=== PATIENT | male | born 1975 | race Caucasian/White ===

== ENCOUNTER 2019-04-09 03:06 | Emergency (ER) | payer OTHER, SELFPAY ==
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
== END 2019-04-09 03:54 | disposition home or self-care (01) ==
LOC: ERS 03:06
DX: S00.83XA Contusion of other part of head, initial encounter (principal); M25.512 Pain in left shoulder; F17.210 Nicotine dependence, cigarettes, uncomplicated; V63.5XXA Driver of heavy transport vehicle injured in collision with car, pick-up truck or van in traffic accident, initial encounter
CPT/HCPCS: 70450; G0390